=== PATIENT | male | born 2000 | race Hispanic/Latino ===

== ENCOUNTER 2022-02-25 04:49 | Emergency (ER) | payer OTHER ==
[2022-02-25] MEDS ORDERED: Ondansetron PF 4 MG/2 ML Vial ONE (05:13)
[2022-02-25] MEDS ORDERED: Ketorolac Tromethamine 30 MG/ML VIAL ONE (05:13)
== END 2022-02-25 05:50 | disposition home or self-care (01) ==
LOC: CSHERS 04:49
DX: F10.129 Alcohol abuse with intoxication, unspecified (principal); R11.2 Nausea with vomiting, unspecified
CPT/HCPCS: 96374; 96375; J1885; J2405